=== PATIENT | male | born 1975 | race Caucasian/White ===

== ENCOUNTER 2019-05-16 00:14 | Emergency (ER) | payer BC ==
[~2019-05-16] VITALS: Ht 180.3 cm; Wt 100.0 kg
[2019-05-16 00:33] VITALS: BP 136/81; TEMP 97.8
[2019-05-16] MEDS ORDERED: FLONASE NASAL S16 GM NS (01:24)
[2019-05-16 02:01] LABS: HEMATOCRIT 49.8 % (42.0-52.0); HEMOGLOBIN 17.1 g/dl (13.5-18.0); MEAN CELL VOLUME 84 fl (80.0-100.0); MEAN CORPUSCULAR HEMOGLOBIN 29 pg (27.0-31.0); MEAN CORPUSCULAR HGB CONC 34 g/dl (33.0-37.0); MEAN PLATELET VOLUME 9.7 fl (7.4-10.4); PLATELET COUNT 286 K/mm3 (130-400); REDCELL DISTRIBUTION WIDTH-CV 12.4 % (11.5-14.5)
[2019-05-16 02:12] LABS: ALBUMIN 5.1 gm/dL (3.5-5.0); BILIRUBIN,TOTAL 0.9 mg/dL (0.0-1.0); CALCIUM 9.4 mg/dL (8.4-10.2); CREATININE, serum 0.83 (0.66-1.25); POTASSIUM 5.3 mmol/L (3.4-5.0); TOTAL PROTEIN 8.3 gm/dL (6.4-8.2)
[2019-05-16 02:29] LABS: BAND 1 % (0-10); NEUTROPHILS 94 % (42.0-75.2); PLATELET ESTIMATE NORMAL (NORMAL)
[2019-05-16 03:48] LABS: COLLECTION METHOD CLEAN CATCH
[2019-05-16 03:57] LABS: MUCOUS Present /lpf; PH 6 (5-8); SQUAMOUS EPITHELIAL None Seen /hpf; URINE APPEARANCE Clear; URINE BACTERIA None Seen /hpf; URINE BILIRUBIN Negative (NEGATIVE); URINE BLOOD Negative (NEGATIVE); URINE COLOR Yellow; URINE GLUCOSE Negative (NEGATIVE); URINE KETONE 2+ (NEGATIVE); URINE LEUKOCYTE ESTERASE Negative (NEGATIVE); URINE NITRATE Negative (NEGATIVE); URINE PROTEIN(semi-quant) Negative (NEGATIVE); URINE UROBILINOGEN Negative (NEGATIVE)
[2019-05-16] MEDS ORDERED: CIPRO 500MG TA500 MG PO (04:21)
[2019-05-16] MEDS ORDERED: FLAGYL500 MG PO (04:21)
[2019-05-16 05:07] VITALS: PULSE 113
== END 2019-05-16 05:07 | disposition home or self-care (01) ==
LOC: COL.ER 00:14
PROVIDERS: Emergency Medicine
DX: K52.9 Noninfective gastroenteritis and colitis, unspecified (principal); Z90.89 Acquired absence of other organs; Z79.51 Long term (current) use of inhaled steroids
CPT/HCPCS: J2405; J2765; J7030